=== PATIENT | female | born 2000 | race Two or more races ===

== ENCOUNTER 2021-01-27 17:37 | Emergency (ER) | payer OTHER ==
[~2021-01-27] VITALS: Ht 160 cm; Wt 61.2 kg
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
[2021-01-27] MEDS ORDERED: ACETAMINOPHEN ES 500 MG TABLET PO ONE (18:00)
[2021-01-27] MEDS ORDERED: ACETAMINOPHEN ES 500 MG TABLET ONE (18:01)
--- NOTE | 2021-01-27 18:03 | NUR ---
[facility] AT BEDSIDE
--- NOTE | 2021-01-27 18:16 | NUR ---
URINE COLLECTED AND SENT TO LAB
--- NOTE | 2021-01-27 18:35 | NUR ---
TAKEN TO CT
[2021-01-27 19:22] VITALS: BP 109/79
--- NOTE | 2021-01-27 19:22 | NUR ---
Patient discharged to home in stable condition. Written and verbal after care instructions given. Patient verbalizes understanding of instruction.
== END 2021-01-27 19:23 | disposition home or self-care (01) ==
LOC: ER 17:39
DX: S11.81XA Laceration without foreign body of other specified part of neck, initial encounter (principal); S09.8XXA Other specified injuries of head, initial encounter; Y08.89XA Assault by other specified means, initial encounter; Y93.89 Activity, other specified; Y92.89 Other specified places as the place of occurrence of the external cause; Y99.8 Other external cause status
CPT/HCPCS: 70450-TC; 70486-TC; 71045-TC; 72125-TC; 84703-TC